=== PATIENT | female | born 1940 | race Caucasian/White ===

== ENCOUNTER → 2016-12-21 | Outpatient (CLI) | payer OTHER | LOC: GIMAGING 14:12 | PROVIDERS: ATTEND Family Medicine | DX: R05 Cough (principal); R06.2 Wheezing; R06.02 Shortness of breath; N18.9 Chronic kidney disease, unspecified | CPT/HCPCS: 71020-PO ==

== ENCOUNTER → 2017-04-26 | Outpatient (CLI) | payer OTHER | LOC: FIMAGING 12:57 | PROVIDERS: ATTEND Surgery | DX: I65.22 Occlusion and stenosis of left carotid artery (principal); Z95.828 Presence of other vascular implants and grafts ==

== ENCOUNTER → 2017-10-07 | Outpatient (CLI) | payer OTHER | LOC: FIMAGING 12:49 | PROVIDERS: ATTEND Family Medicine | DX: Z12.31 Encounter for screening mammogram for malignant neoplasm of breast (principal) | CPT/HCPCS: G0202 ==

== ENCOUNTER → 2017-11-08 | Outpatient (CLI) | payer OTHER | LOC: FIMAGING 13:22 | PROVIDERS: ATTEND Family Medicine | DX: Z13.820 Encounter for screening for osteoporosis (principal); M81.0 Age-related osteoporosis without current pathological fracture; E03.9 Hypothyroidism, unspecified; E55.9 Vitamin D deficiency, unspecified; N28.9 Disorder of kidney and ureter, unspecified ==

== ENCOUNTER → 2018-05-07 | Outpatient (CLI) | payer OTHER | LOC: BHFA 15:00 | PROVIDERS: ATTEND Internal Medicine Cardiovascular Disease | DX: I25.10 Atherosclerotic heart disease of native coronary artery without angina pectoris (principal); I10 Essential (primary) hypertension; I73.9 Peripheral vascular disease, unspecified; E78.00 Pure hypercholesterolemia, unspecified; Z95.5 Presence of coronary angioplasty implant and graft ==

== ENCOUNTER 2018-06-25 02:32 | Emergency (ER) | payer OTHER ==
[2018-06-25 03:11] LABS: PLATELET COUNT 218 10^3/uL (150-400)
--- NOTE | 2018-06-25 03:14 | EDPHY ---
H & P Stated Complaint: woke with chest pain and sweaty feeling, now with back pain Time Seen by Provider: 06/25/18 03:10 HPI/ROS: HPI The patient presents with chest pain and lower back pain for the last several hours. The patient woke up at 10:00 p.m. Which is not unusual for her because she has a history of obstructive sleep apnea. She noticed that she had a mild discomfort in her chest associated with shortness of breath though it did not concern her too much. She went back to bed however then noticed that she had lower back pain which is achy in nature and moderate in severity. This persisted throughout the last several hours so she came into the emergency department. The pain is in the middle of her back, does not radiate, she has no prior history of similar, she does not have any bowel or bladder dysfunction.. She denies any recent injuries. REVIEW OF SYSTEMS Constitutional: No fever, no chills. Eyes: No discharge. ENT: No sore throat. Cardiovascular: Positive for chest pain, no palpitations. Respiratory: No cough, no shortness of breath. Gastrointestinal: No abdominal pain, no vomiting. Genitourinary: No hematuria. Musculoskeletal: Positive for back pain. Skin: No rashes. Neurological: No headache. PMHx: MARIUSZ, insomnia, CAD Soc Hx: Housed PHYSICAL General Appearance: Alert, no distress Eyes: Pupils equal and round no pallor or injection ENT, Mouth: Mucous membranes moist Respiratory: There are no retractions, lungs are clear to auscultation Cardiovascular: Regular rate and rhythm Gastrointestinal: Abdomen is soft and non-tender, no masses, bowel sounds normal Back: There is tenderness at the midline of the mid lumbar spine with no paraspinal tenderness and no overlying skin change Neurological: A&O, moves all extremities Skin: Warm and dry, no rashes Musculoskeletal: Neck is supple non tender Extremities: symmetrical, full range of motion Psychiatric: Patient is oriented X 3, there is no agitation Source: Patient Exam Limitations: No limitations - Personal History Current Tetanus/Diphtheria Vaccine: Yes Current Tetanus Diphtheria and Acellular Pertussis (TDAP): Yes - Medical/Surgical History Hx Asthma: No Hx Chronic Respiratory Disease: No Hx Diabetes: No Hx Cardiac Disease: Yes Hx Renal Disease: Yes Hx Cirrhosis: No Hx Alcoholism: No Hx HIV/AIDS: No Hx Splenectomy or Spleen Trauma: No Other PMH: HTN, thyroid, carotid stent 02/20/2015,chronic renal insufficiency - Social History Smoking Status: Never smoked Constitutional: Initial Vital Signs Temperature (C) 36.4 C 06/25/18 02:35 Heart Rate 62 06/25/18 02:35 Respiratory Rate 18 06/25/18 02:35 Blood Pressure 163/73 H 06/25/18 02:35 O2 Sat (%) 97 06/25/18 02:35 O2 Delivery Mode Room Air Allergies/Adverse Reactions: No Known Allergies Allergy (Unverified 06/25/18 02:41) Home Medications: Medication Instructions Recorded Calcium Carb W/Vit D [Calcium Carb 500 mg PO DAILY 01/20/15 W/Vit D 500/200 (*)] Carvedilol [Coreg (*)] 6.25 mg PO BIDMEAL 01/20/15 Cholecalciferol Vit D3 [Vitamin D3 5,000 units PO WE 01/20/15 (*)] Furosemide [Lasix 20 MG (*)] 20 mg PO DAILY PRN 01/20/15 Levothyroxine [Synthroid 75 mcg 75 mcg PO DAILY06 01/20/15 (*)] Pantoprazole Sodium [Protonix 40mg 40 mg PO DAILY@01/20/15 (*)] Rosuvastatin Calcium [Crestor 40mg 40 mg PO DAILY@01/20/15 (*)] amLODIPine BESYLATE [Norvasc 2.5 2.5 mg PO DAILY@01/20/15 mg (*)] Aspirin EC [Aspirin EC 325 mg (*)] 81 mg PO DAILY@06/27/15 Herbals/Supplements -Info Only 1 ea PO DAILY 06/27/15 Melatonin/Pyridoxine HCl (B6) 1 each PO HS PRN 06/27/15 [Melatonin 10 mg Tablet] diphenhydrAMINE [Benadryl 25 MG 25 mg PO HS PRN 06/27/15 (*)] Medical Decision Making - Diagnostics Imaging Results: Chest x-ray two view shows no infiltrate, no cardiomegaly, interpreted by me, radiology interpretation is pending. CT lumbar spine without contrast demonstrates no fracture, discussed with Dr. Carranza of Radiology. Imaging: I viewed and interpreted images myself Differential Diagnosis: 78-year-old female with history of CAD, MARIUSZ presents with initial chest pain and subsequently back pain of her lower back. On exam, she is tender at the midline, she has no other symptoms currently. Differential diagnosis includes lumbar strain, less likely cauda equina, aortic dissection. In the emergency department, basic labs were checked and were all unremarkable. Chest x-ray was normal. The patient had ongoing back pain and was treated with Toradol and morphine. This improved her pain significantly. CT scan was obtained which showed no fracture though DJD is present. The patient was monitored in the emergency department with no ongoing symptoms. Repeat troponin was checked and was undetectable. She will be discharged home. I have instructed her to use Tylenol for her back pain and follow up with her primary care doctor in the next few days. She is in agreement with this plan. - Data Points Laboratory Results: Laboratory Results 06/25/18 03:00 06/25/18 03:00 06/25/18 06/25/18 06/25/18 06:38 03:03 03:00 WBC RBC Hgb Hct MCV MCH MCHC RDW Plt Count MPV Neut % (Auto) Lymph % (Auto) [place] % (Auto) Eos % (Auto) Baso % (Auto) Nucleat RBC Rel Count Absolute Neuts (auto) Absolute Lymphs (auto) Absolute Monos (auto) Absolute Eos (auto) Absolute Basos (auto) Absolute Nucleated RBC Immature Gran % Immature Gran # Sodium 141 mEq/L mEq/L (135-145) Potassium 3.8 mEq/L mEq/L (3.3-5.0) Chloride 107 mEq/L mEq/L (97-110) Carbon Dioxide 24 mEq/l mEq/l (22-31) Anion Gap 10 mEq/L mEq/L (8-16) BUN 24 mg/dL H mg/dL (7-23) Creatinine 1.7 mg/dL H mg/dL (0.6-1.0) Estimated GFR 29 Glucose 124 mg/dL H mg/dL (70-100) Calcium 9.0 mg/dL mg/dL (8.5-10.4) POC Troponin I 0.02 ng/mL ng/mL 0.01 ng/mL ng/mL (0.00-0.08) (0.00-0.08) NT-Pro-B Natriuret Pep 379 pg/mL pg/mL (0-450) 08/29/18 03:00 WBC 9.53 10^3/uL H 10^3/uL (3.80-9.50) RBC 3.70 10^6/uL L 10^6/uL (4.18-5.33) Hgb 11.6 g/dL L g/dL (12.6-16.3) Hct 35.4 % L % (38.0-47.0) MCV 95.7 fL fL (81.5-99.8) MCH 31.4 pg pg (27.9-34.1) MCHC 32.8 g/dL g/dL (32.4-36.7) RDW 13.7 % % (11.5-15.2) Plt Count 218 10^3/uL 10^3/uL (150-400) MPV 10.5 fL fL (8.7-11.7) Neut % (Auto) 65.6 % % (39.3-74.2) Lymph % (Auto) 20.9 % % (15.0-45.0) [place] % (Auto) 10.9 % % (4.5-13.0) Eos % (Auto) 1.8 % % (0.6-7.6) Baso % (Auto) 0.5 % % (0.3-1.7) Nucleat RBC Rel Count 0.0 % % (0.0-0.2) Absolute Neuts (auto) 6.25 10^3/uL 10^3/uL (1.70-6.50) Absolute Lymphs (auto) 1.99 10^3/uL 10^3/uL (1.00-3.00) Absolute Monos (auto) 1.04 10^3/uL H 10^3/uL (0.30-0.80) Absolute Eos (auto) 0.17 10^3/uL 10^3/uL (0.03-0.40) Absolute Basos (auto) 0.05 10^3/uL 10^3/uL (0.02-0.10) Absolute Nucleated RBC 0.00 10^3/uL 10^3/uL (0-0.01) Immature Gran % 0.3 % % (0.0-1.1) Immature Gran # 0.03 10^3/uL 10^3/uL (0.00-0.10) Sodium Potassium Chloride Carbon Dioxide Anion Gap BUN Creatinine Estimated GFR Glucose Calcium POC Troponin I NT-Pro-B Natriuret Pep Medications Given: Discontinued Medications Ketorolac Tromethamine (Toradol) 15 mg IVP EDNOW ONE Stop: 06/25/18 03:52 Last Admin: 06/25/18 04:03 Dose: 15 mg Morphine Sulfate (Morphine) 4 mg IVP EDNOW ONE Stop: 06/25/18 03:52 Last Admin: 06/25/18 04:04 Dose: 4 mg Point of Care Test Results: Chemistry 06/25/18 06/25/18 06:38 03:03 POC Troponin I 0.02 ng/mL ng/mL 0.01 ng/mL ng/mL (0.00-0.08) (0.00-0.08) Departure - Departure Disposition: Home, Routine, Self-Care Clinical Impression: Chest pain, Lower back pain Condition: Good Instructions: Low Back Strain (ED), Lower Back Exercises (ED) Additional Instructions: Please follow-up with your primary care doctor in the next 1-2 days. Please return to the emergency department if your worse in any way. Referrals: Tino Cano MD [Primary Care Provider] - As per Instructions
[2018-06-25] MEDS ORDERED: KETOROLAC 15 MG/1 ML SDV IVP ONE (03:51)
[2018-06-25] MEDS ORDERED: ONDANSETRON 4 MG/2 ML VIAL IVP ONE (07:11)
[2018-06-25] MEDS ORDERED: ONDANSETRON 4 MG/2 ML VIAL ONE (07:11)
[2018-06-25 08:29] VITALS: BP 144/85
--- NOTE | 2018-06-26 03:42 | CPEKG ---
Test Reason : OPEN Blood Pressure : / mmHG Vent. Rate : 066 BPM Atrial Rate : 066 BPM P-R Int : 205 ms QRS Dur : 101 ms QT Int : 410 ms P-R-T Axes : 035 -18 052 degrees QTc Int : 430 ms Sinus rhythm Borderline left axis deviation Low voltage, precordial leads Confirmed by Ca Jeffery ([id number]) on 06/26/2018 3:42:04 AM Referred By: Confirmed By:Ca Jeffery
== END 2018-06-25 08:38 | disposition home or self-care (01) ==
DX: R07.9 Chest pain, unspecified (principal); M54.5 Low back pain
CPT/HCPCS: 71046; 72131; 93005; 96374; 96375; 99285; J1885; J2270; J2405; 84484-PO

== ENCOUNTER 2018-09-14 18:49 | Emergency (ER) | payer OTHER ==
--- NOTE | 2018-09-14 18:50 | EDPHY ---
HPI/HX/ROS/PE/MDM Narrative: CHIEF COMPLAINT: Dizzy, weakness HPI: The patient is an 78 y/o female with a history of hypertension, MARIUSZ and CAD arriving via EMS for weakness and feeling generally weak and dizzy when she stands or moves in bed. The patient states that the dizziness is intermittent. She had more difficulty while walking around her house today, which EMS said was cluttered with narrow walkways. The patient is also complaining of a decreased appetite, but denies missing any medications. She also thought her blood pressure was too high as it was 150/80, which is abnormal for her. She took her hypertension medication this morning but did not take her dose tonight. No headache, chest pain, shortness of breath, abdominal pain, urinary or bowel complaints. REVIEW OF SYSTEMS: Aside from elements discussed in the HPI, a comprehensive 10 system review of systems is otherwise negative. PMH: MARIUSZ, insomnia, CAD, hypertension SOCIAL HISTORY: Friend at bedside, lives in [place] with her family, single, retired PHYSICAL EXAM: General: Patient is alert, in no acute distress. ENT: Eyes are normal to inspection; no nystagmus. ENT inspection normal. Neck: Normal inspection. Full range of motion. Respiratory: No respiratory distress. Breath sounds normal bilaterally. Cardiovascular: Regular rate and rhythm. Strong peripheral pulses. Normal cap refill. Abdomen: The abdomen is nontender to palpation. There are no peritoneal signs. There are normal bowel sounds. Back: Normal to inspection. No tenderness to palpation. Skin: Normal color. No rash. Warm and dry. Extremities: Normal appearance. Full range of motion. Neuro: Oriented x3. Normal motor function. Normal sensory function. No pronator drift. Normal [id number]. ED Course: 2027: I reviewed patient's EKG which reveals sinus bradycardia. 2129: Reassessed patient and discussed laboratory findings. She is still feeling the same as when she presented to the emergency department. Crackers and juice given. 2214: Reassessed patient, she feels better after cracker and juice. She is safe to be discharged home with a follow up at her PCP. Return precautions provided; patient is comfortable with this plan. MDM: This patient presents with non-specific lack of appetite and generalized weakness. She describes dizziness but has no cerebellar signs or vertiginous symptoms here in the ED. We performed a broad workup which is negative for signs of ACS, electrolyte abnormality or infection. Patient has no localizing features to prompt further testing. We discussed options, and patient is comfortable with plan to go home and try to stay well-hydrated rather than be admitted for observation. She understands that the etiology of her symptoms is unknown at this time. Her exam is remarkable only for mild bradycardia (review of chart indicates this is unchanged from chronic) and hypertension, which seems likely to be secondary to patient non-compliance as patient seems a bit unsure regarding which meds she has been taking. - Data Points Laboratory Results: Laboratory Results 09/14/18 18:52 09/14/18 18:52 09/14/18 09/14/18 09/14/18 21:10 19:21 18:52 WBC RBC Hgb Hct MCV MCH MCHC RDW Plt Count MPV Neut % (Auto) Lymph % (Auto) [place] % (Auto) Eos % (Auto) Baso % (Auto) Nucleat RBC Rel Count Absolute Neuts (auto) Absolute Lymphs (auto) Absolute Monos (auto) Absolute Eos (auto) Absolute Basos (auto) Absolute Nucleated RBC Immature Gran % Immature Gran # Sodium 139 mEq/L mEq/L (135-145) Potassium 3.9 mEq/L mEq/L (3.3-5.0) Chloride 106 mEq/L mEq/L (97-110) Carbon Dioxide 24 mEq/l mEq/l (22-31) Anion Gap 9 mEq/L mEq/L (6-14) BUN 17 mg/dL mg/dL (7-23) Creatinine 1.6 mg/dL H mg/dL (0.6-1.0) Estimated GFR 31 Glucose 122 mg/dL H mg/dL (70-100) Calcium 9.6 mg/dL mg/dL (8.5-10.4) POC Troponin I 0.01 ng/mL ng/mL (0.00-0.08) Urine Color YELLOW Urine Appearance HAZY Urine pH 7.0 (5.0-7.5) Ur Specific [place] 1.008 (1.002-1.030) Urine Protein 1+ H (NEGATIVE) Urine Ketones NEGATIVE (NEGATIVE) Urine Blood 1+ H (NEGATIVE) Urine Nitrate NEGATIVE (NEGATIVE) Urine Bilirubin NEGATIVE (NEGATIVE) Urine Urobilinogen NEGATIVE EU EU (0.2-1.0) Ur Leukocyte Esterase 1+ H (NEGATIVE) Urine RBC 1-3 /hpf /hpf (0-3) Urine WBC 0-1 /hpf /hpf (0-3) Ur Epithelial Cells 2+ /lpf H /lpf (NONE-1+) Urine Mucus TRACE /lpf /lpf (NONE-1+) Urine Glucose NEGATIVE (NEGATIVE) 09/14/18 18:52 WBC 8.27 10^3/uL 10^3/uL (3.80-9.50) RBC 4.04 10^6/uL L 10^6/uL (4.18-5.33) Hgb 12.9 g/dL g/dL (12.6-16.3) Hct 38.8 % % (38.0-47.0) MCV 96.0 fL fL (81.5-99.8) MCH 31.9 pg pg (27.9-34.1) MCHC 33.2 g/dL g/dL (32.4-36.7) RDW 13.8 % % (11.5-15.2) Plt Count 222 10^3/uL 10^3/uL (150-400) MPV 10.6 fL fL (8.7-11.7) Neut % (Auto) 66.5 % % (39.3-74.2) Lymph % (Auto) 21.3 % % (15.0-45.0) [place] % (Auto) 9.9 % % (4.5-13.0) Eos % (Auto) 1.5 % % (0.6-7.6) Baso % (Auto) 0.7 % % (0.3-1.7) Nucleat RBC Rel Count 0.0 % % (0.0-0.2) Absolute Neuts (auto) 5.50 10^3/uL 10^3/uL (1.70-6.50) Absolute Lymphs (auto) 1.76 10^3/uL 10^3/uL (1.00-3.00) Absolute Monos (auto) 0.82 10^3/uL H 10^3/uL (0.30-0.80) Absolute Eos (auto) 0.12 10^3/uL 10^3/uL (0.03-0.40) Absolute Basos (auto) 0.06 10^3/uL 10^3/uL (0.02-0.10) Absolute Nucleated RBC 0.00 10^3/uL 10^3/uL (0-0.01) Immature Gran % 0.1 % % (0.0-1.1) Immature Gran # 0.01 10^3/uL 10^3/uL (0.00-0.10) Sodium Potassium Chloride Carbon Dioxide Anion Gap BUN Creatinine Estimated GFR Glucose Calcium POC Troponin I Urine Color Urine Appearance Urine pH Ur Specific [place] Urine Protein Urine Ketones Urine Blood Urine Nitrate Urine Bilirubin Urine Urobilinogen Ur Leukocyte Esterase Urine RBC Urine WBC Ur Epithelial Cells Urine Mucus Urine Glucose Medications Given: Discontinued Medications Amlodipine Besylate (Norvasc) 2.5 mg PO EDNOW ONE Stop: 09/14/18 19:26 Last Admin: 09/14/18 19:44 Dose: 2.5 mg Sodium Chloride (Ns) 1,000 mls @ 0 mls/hr IV EDNOW ONE; Wide Open PRN Reason: Protocol Stop: 09/14/18 18:56 Last Admin: 09/14/18 19:04 Dose: 1,000 mls Point of Care Test Results: Chemistry 09/14/18 19:21 POC Troponin I 0.01 ng/mL ng/mL (0.00-0.08) General Time Seen by Provider: 09/14/18 19:02 Initial Vital Signs: Initial Vital Signs Temperature (C) 36.9 C 09/14/18 18:52 Heart Rate 60 09/14/18 18:52 Respiratory Rate 18 09/14/18 18:52 Blood Pressure 196/90 H 09/14/18 18:52 O2 Delivery Mode Room Air Allergies/Adverse Reactions: No Known Allergies Allergy (Unverified 06/25/18 02:41) Home Medications: Medication Instructions Recorded Calcium Carb W/Vit D [Calcium Carb 500 mg PO DAILY 01/20/15 W/Vit D 500/200 (*)] Carvedilol [Coreg (*)] 6.25 mg PO BIDMEAL 01/20/15 Cholecalciferol Vit D3 [Vitamin D3 5,000 units PO WE 01/20/15 (*)] Furosemide [Lasix 20 MG (*)] 20 mg PO DAILY PRN 01/20/15 Levothyroxine [Synthroid 75 mcg 75 mcg PO DAILY06 01/20/15 (*)] Pantoprazole Sodium [Protonix 40mg 40 mg PO DAILY@01/20/15 (*)] Rosuvastatin Calcium [Crestor 40mg 40 mg PO DAILY@01/20/15 (*)] amLODIPine BESYLATE [Norvasc 2.5 2.5 mg PO DAILY@01/20/15 mg (*)] Aspirin EC [Aspirin EC 325 mg (*)] 81 mg PO DAILY@06/27/15 Herbals/Supplements -Info Only 1 ea PO DAILY 06/27/15 Melatonin/Pyridoxine HCl (B6) 1 each PO HS PRN 06/27/15 [Melatonin 10 mg Tablet] diphenhydrAMINE [Benadryl 25 MG 25 mg PO HS PRN 06/27/15 (*)] Departure - Departure Disposition: Home, Routine, Self-Care Clinical Impression: Dizzy, Weakness Condition: Good Instructions: Weakness (ED), Dizziness (ED) Additional Instructions: Follow-up with your primary doctor within 72 hours. Return to the Emergency Department for fever, chest pain, shortness of breath, increasing pain or other worsening of condition. Referrals: Paul Blevins MD [[facility] [place] Primary Care Provider] - As per Instructions Report Scribed for: Yonatan Hamm Report Scribed by: Karma Vega Date of Report: 09/14/18 Time of Report: 18:51 Physician Review and Approval Statement: Portions of this note were transcribed by an ED scribe. I personally performed the history, physical exam, and medical decision making; and confirm the accuracy of the information in the transcribed note.
[2018-09-14] MEDS ORDERED: NS 1,000 ML IV ONE (18:55)
[2018-09-14 19:06] LABS: PLATELET COUNT 222 10^3/uL (150-400)
[2018-09-14] MEDS ORDERED: amLODIPine BESYLATE 5 MG TAB PO ONE (19:25)
[2018-09-14 22:11] VITALS: BP 140/61
--- NOTE | 2018-09-16 15:12 | CPEKG ---
Test Reason : OPEN Blood Pressure : / mmHG Vent. Rate : 049 BPM Atrial Rate : 049 BPM P-R Int : 189 ms QRS Dur : 103 ms QT Int : 475 ms P-R-T Axes : 074 -20 018 degrees QTc Int : 429 ms Sinus bradycardia Inferior infarct, old Confirmed by Yonatan Hamm ([id number]) on 09/16/2018 3:11:56 PM Referred By: Confirmed By:Yonatan Hamm
== END 2018-09-14 22:32 | disposition home or self-care (01) ==
LOC: EDUNIT#
DX: R53.1 Weakness (principal); R42 Dizziness and giddiness; I10 Essential (primary) hypertension; I25.10 Atherosclerotic heart disease of native coronary artery without angina pectoris; G47.33 Obstructive sleep apnea (adult) (pediatric)
CPT/HCPCS: 84484-PO

== ENCOUNTER → 2018-10-08 | Outpatient (CLI) | payer OTHER | LOC: FIMAGING 13:13 | PROVIDERS: ATTEND Family Medicine | DX: Z12.31 Encounter for screening mammogram for malignant neoplasm of breast (principal) ==